=== PATIENT | female | born 1965 | race Caucasian/White ===

== ENCOUNTER 2017-10-14 07:17 | Inpatient (IN) | payer BC ==
[~2017-10-14] VITALS: Ht 162.6 cm; Wt 136.0 kg
[~2017-10-14 07:17] MED LIST: ALPR.25 PO; COEN400C PO; FAMO40TA PO; FOLI400T PO; HYDR-3580 PO; METF500T PO; ROSU1TAB8 PO
[2017-10-14] MEDS ORDERED: LACTATED RINGER'S 1000 ML IV PRN (08:00)
[2017-10-14] MEDS ORDERED: METOPROLOL TARTRATE 25 MG TAB PO PRN (08:00)
[2017-10-14] MEDS ORDERED: CHLORHEXIDINE GLUCONATE 2 % 1 PACK (2 CLOTHS) TOPICAL PRN (08:00)
[2017-10-14] MEDS ORDERED: SODIUM CHLORID 0.9% 500 ML IV PRN (08:00)
[2017-10-14] MEDS ORDERED: POVIDONE IODINE 5% (ANTISEPSIS KIT) 4 APPLICATIONS EACH NARE PRN (08:00)
[2017-10-14] MEDS ORDERED: CEFAZOLIN INJ 2,000 MG in SODIUM CHLORIDE 0.9% INJ 100 ML IV SCH (08:00)
[2017-10-14] MEDS ORDERED: CHLORHEXIDINE GLUCONATE 4% SOLN 120 ML BTL TOPICAL SCH (08:00)
[2017-10-14] MEDS ORDERED: VANCOMYCIN 1000 MG/NS 250 ML (for <70 kg) IV SCH ×2 (08:00)
[2017-10-14] MEDS ORDERED: FLUT50SP EACH NARE (08:46)
[2017-10-14] MEDS ORDERED: PROPOFOL 500 MG/50 ML INJ 100 ML ONE (09:14)
[2017-10-14] MEDS ORDERED: BUPIVACAINE/EPINEPHRINE 0.25% 50 ML VIAL ONE (09:19)
[2017-10-14] MEDS ORDERED: GENTAMICIN SULFATE 80 MG/2 ML VIAL ONE (09:20)
[2017-10-14] MEDS ORDERED: FAMOTIDINE 20 MG/2 ML VIAL ONE (09:57)
[2017-10-14] MEDS ORDERED: ceFAZolin INJ 1,000 MG VIAL ONE (10:11)
[2017-10-14] MEDS ORDERED: PROPOFOL 200 MG/20 ML AMP IV ONE (10:35)
[2017-10-14] MEDS ORDERED: ONDANSETRON HCL 4 MG/2 ML VIAL IV ONE (10:35)
[2017-10-14] MEDS ORDERED: ROCURONIUM INJ 50 MG/5 ML SYRINGE IV PUSH ONE (10:35)
[2017-10-14] MEDS ORDERED: LACTATED RINGER'S 1000 ML INJ 1,000 ML IV ONE (10:35)
[2017-10-14] MEDS ORDERED: ceFAZolin INJ 1,000 MG VIAL IV ONE ×2 (10:35→10:45)
--- NOTE | 2017-10-14 13:42 | PD.OP ---
cc: Macr Edwards MD; Hero Edwards MD Operative Report Date of Surgery: Oct 14, 2017 Preoperative Diagnosis: Osteophyte disc complex C3 5 6. Herniated nucleus pulposus C6 7, right, extruded. Right greater than left cervical radiculopathy Postoperative Diagnosis: Same Procedure: Anterocervical discectomy decompression with bilateral foraminotomy, C5 6. Anterocervical discectomy decompression and bilateral foraminotomies, C6 7. Left anterior iliac crest bone graft Anesthesia: Gen. Surgeon: Hero Edwards Masonry Supervisor(s): ALISE Castaneda Operation and Findings: EBL: 200 cc INDICATIONS: Patient is a 51-year-old female with severe right arm pain. Investigative studies shows evidence of an extruded disc herniation to the right at C67. There is evidence of an osteophyte disc complex with central stenosis and bilateral foraminal stenosis at C5 6. She presents for surgical treatment. NOTE: Vivi Castaneda PA-C was present for the entire surgical procedure as my expanded function dental assistant. In my medical opinion her skill and care was necessary for proper management of this patient PROCEDURE: The patient was brought to the operating room and anesthetized in the supine position. This patient was positioned supine on the radiolucent table. All pressure points were protected in the anterior cervical spine and iliac crest was scrubbed with alcohol followed by Hibiclens followed by ChloraPrep. A timeout was done and antibiotics were given within 1 hour time window. Lateral radiographic images were used identifying the proper level. A right anterior incision was made in line with skin creases. The platysma was opened in line with the incision. Deep dissection continued in the interval between the carotid sheath and the esophagus. The longus-coli muscles were lifted on both sides and retractors were positioned allowing good exposure. Lateral radiographic images were used to identify the proper level. [place] style interosseous pins were placed at C5 and C6 allowing exposure to that level. The microscope was rolled into the field. A total discectomy was accomplished and posterior osteophytes were removed. The posterior longitudinal ligament and annulus was taken down. Bilateral foraminotomies were accomplished. The endplates were squared up anticipating later bone grafting. A blunt probe could be placed out each foramen without evidence of nerve root compromise. The C5 pin was placed down to C7. An anterior exposure was accomplished. We performed a total discectomy with excision of the posterior annulus and posterior longitudinal ligament. Bilateral foraminotomies were accomplished. Osteophytes were removed. The endplates were squared up anticipating later bone grafting. A blunt probe could be placed out each foramen without evidence of nerve root compromise. The left iliac crest was approached. A small stab incision was made allowing percutaneous access to the anterior iliac crest. Multiple cores of cancellous bone were harvested and taken to the back table to be used for later bone grafting. The wound was irrigated anesthetized and closed with 4-0 Vicryl followed by Dermabond. The case was turned over to Dr. Marc Edwards for fusion and instrumentation per his dictation. FINDINGS: Was evidence of a large extruded disc herniation into the foramen to the right at C6 7. There was some bleeding that was encountered at the C6-C7 level. FloSeal was used for hemostasis. The case was turned over to Dr. Marc Edwards, the wound was completely dry. NOTE: This surgery was performed in 2 parts. The first part was the neurosurgical decompression performed under the variable power stereo microscope by the undersigned in addition to the bone graft. The second portion of the surgery will be performed by the orthopedic spine component by co -surgeon, Dr. Marc Edwards for the anterior fusion with interbody cage and anterior plate. The skill of 2 surgeons was necessary to perform distinct separate procedural services as dictated above and dictated in the following operative note by Dr. Marc Edwards. Hero Edwards MD Oct 14, 2017 13:42
[2017-10-14] MEDS ORDERED: DO NOT ADM ANY ANTICOAGULANT DRUGS PRN (14:39)
[2017-10-14] MEDS ORDERED: *MEPERIDINE 25 MG INJ VIAL PERIprocedural Use ONLY ONE (14:43)
[2017-10-14] MEDS ORDERED: Post-op Orders (for Pharmacy) XX ONE (14:45)
[2017-10-14] MEDS ORDERED: ALUMINUM/MAGNESIUM/SIMETH 30 ML CUP PO PRN (14:45)
[2017-10-14] MEDS ORDERED: PROMETHAZINE INJ 25 MG/ML VIAL IM PRN (14:45)
[2017-10-14] MEDS ORDERED: ALPRAZolam 0.25 MG TAB PO PRN (14:45)
[2017-10-14] MEDS ORDERED: ONDANSETRON HCL 4 MG/2 ML VIAL IV PUSH PRN (14:45)
[2017-10-14] MEDS ORDERED: ACETAMINOPHEN/HYDROcodone 325 MG/7.5 MG TAB PO PRN (14:45)
[2017-10-14] MEDS ORDERED: MIDAZOLAM HCL 2 MG/2 ML VIAL ONE (14:47)
[2017-10-14] MEDS ORDERED: *morphine SULFATE 8 MG/ML PERIprocedure ONLY ONE (14:56)
[2017-10-14] MEDS: LACTATED RINGER'S 1000 ML INJ 1,000 ML IV SCH (15:00)
--- NOTE | 2017-10-14 15:02 | RADRPT ---
EXAM DATE/TIME: 10/14/2017 14:02 [facility] COMPARISON: No previous studies available for comparison. INDICATIONS : C5-6, C6-7 Anrterior cervical disc fusion. MEDICAL HISTORY : Diabetes mellitus type II. Osteoarthritis. Gastroesophageal reflux disease. Smoker. SURGICAL HISTORY : Appendectomy. ENCOUNTER: Initial ACUITY: 1 day PAIN SCORE: Non-responsive. LOCATION: Cervical spine. FINDINGS: 4 images were recorded digitally in the operating room using C-arm during placement of a 3 level ante rior cervical plate. CONCLUSION: Intraoperative images. Néstor Riojas MD on October 14, 2017 at 14:59 Board Certified Radiologist. This report was verified electronically.
--- NOTE | 2017-10-14 16:10 | MP ---
cc: Marc Edwards MD DATE OF OPERATION: 10/14/2017 PREOPERATIVE DIAGNOSES: 1. C6-7 central right-sided foraminal herniated nucleus pulposus. 2. C5-C6 osteophyte disk complex, bilateral foraminal stenosis. 3. C4-C7 degenerative disk disease, osteoarthritis. 4. Right-sided cervical radiculitis with right upper extremity weakness. 5. Morbid obesity, body mass index 51.3. POSTOPERATIVE DIAGNOSES: 1. C6-7 central right-sided foraminal herniated nucleus pulposus. 2. C5-C6 osteophyte disk complex, bilateral foraminal stenosis. 3. C4-C7 degenerative disk disease, osteoarthritis. 4. Right-sided cervical radiculitis with right upper extremity weakness. 5. Morbid obesity, body mass index 51.3. PROCEDURE: C5-C6 and C6-C7 anterior interbody fusion; C5-C6, C6-C7 Spinet ACC anterior cervical cage; C5-C7 Spinet Rauscher anterior spinal instrumentation. SURGEON: Heather Edwards MD PRECINCT COMMANDING OFFICER: Vandana Fox PA-C. ESTIMATED BLOOD LOSS: 300 mL for the entire surgical case. COMPLICATIONS: None. DRAINS: None. PLAN OF ACTIVITY: As per orders. NOTE: Dr. Hero Edwards and myself were co-surgeons. Dr. Hero Edwards performed anterior cervical diskectomy, anterior decompression and foraminotomies, anterior decompression at C5-C6 and C6-C7. He also performed left anterior iliac crest bone grafting. I performed the orthopedic fusion and spinal instrumentation at C5-C6, C6-C7 and C5-C7. My news production assistant, Vandana Fox PA-C, was present for my portion of he case. She was medically necessary for the entire case because of the complexity of the case and to facilitate the performance of the procedure. The RESEARCH HOME ECONOMIST at the back table was not of the skill set in this case to manipulate the instruments, e.g. multiple different soft tissue retractors, trial implants and permanent implants. PROCEDURE DETAILS: The patient was brought into the operating room, had satisfactory anesthesia by the Department of Anesthesia. The patient had anterior spinal instrumentation by Dr. Hero Edwards, had anterior cervical exposure by Dr. Hero Edwards on the right side. He performed a C5-C6 and C6-C7 anterior cervical diskectomy, anterior decompression using the operating microscope and foraminotomies. He also performed a left anterior iliac crest bone graft. I was not in the room for his portion of the procedure. This is well described in his operative note. At C6-C7 we prepared for fusion. Hyaline cartilage endplates were removed using angled curettes and burs. A 7,10 x 12 ACC cage was placed in the interspace. Under fluoroscopic guidance anterior iliac crest bone grafting was used for fluoroscopic interbody effusion. The endplates at C5-C6 were prepared for fusion, hyaline cartilage endplate using angled curettes and burs. A 6 mm height 10 x 12 ACC cage was placed in the interspace. At this time, the neuromodular cardiopulmonary technician told me that the patient lost EMGs findings involving the right upper extremity. The cage was removed and within 5 minutes the patient had a complete resolution of the loss of EMG findings. Then the cage was reinserted. Anterior iliac crest bone graft was used under fluoroscopic guidance. The patient maintained the EMG findings throughout the remaining operative procedure. The somatic evoked potentials were never lost in either upper extremities or either lower extremities. The patient never lost any EMG activities involving the left upper extremity or bilateral lower extremities. The anterior osteophytes were removed using angled curettes, rongeurs and burs. A 43 mm length plate was used for anterior spinal instrumentation. The plate was contoured to the appropriate dimensions. Two packs were used to keep the plate in appropriate position, which was confirmed under fluoroscopic guidance in the AP and lateral plane. Then 2 screws were used in the vertebral body at C5, C6, and C7. Each of the screws were drilled, each of the screws were 14 mm in length, 4.0 mm in outer diameter, fixed angle screws. Each screw was appropriately locked to the plate. Intraoperative fluoroscopy in the AP and lateral plane confirmed satisfactory position of the bone graft at the C5-C6, C6-C7 and satisfactory position of the ACC cages at C5-C6, C6-C7, satisfactory position of anterior instrumentation at C5-C7. The wound was irrigated with copious amounts of sterile saline antibiotic solution. The wound itself were dry. The wound was closed in routine manner with multiple 3-0 Vicryl sutures. Skin was approximated with running subcuticular 4-0 Vicryls, Dermabond used on the incision. Sterile dressings were applied. The patient was placed in a [place] cervical orthosis. The patient tolerated the procedure well and arrived in the recovery room in stable and satisfactory condition. MD CARLOS Mathew/DANG , 02:27 PM , 04:09 PM
[2017-10-14 17:00] VITALS: BP 152/69; PULSE 89; RESP 20; TEMP 98.8; O2SAT 96
[2017-10-14] MEDS: ACETAMINOPHEN/HYDROcodone 325 MG/7.5 MG TAB PO PRN (18:22)
[2017-10-14 20:35] VITALS: BP 149/64; PULSE 94; RESP 17; TEMP 99.3; O2SAT 95
[2017-10-14] MEDS ORDERED: HYDROmorphone HCL PF 2 MG/ML VIAL IV PUSH PRN (20:38)
[2017-10-14] MEDS ORDERED: ATORVASTATIN 40 MG TAB PO SCH (21:00)
[2017-10-14] MEDS ORDERED: FLUTICASONE PROPIONATE 50 MCG/ACT 16 GM NASAL SPRAY EACH NARE SCH (21:00)
[2017-10-14] MEDS ORDERED: FAMOTIDINE 20 MG TAB PO SCH (21:00)
[2017-10-14] MEDS ORDERED: ZOLPIDEM TARTRATE 5 MG TAB PO PRN (21:00)
[2017-10-14] MEDS ORDERED: metFORMIN HCL 500 MG TAB PO SCH (21:00)
[2017-10-15] VITALS: BP 151/68; PULSE 98; RESP 18; TEMP 98.2; O2SAT 95
[2017-10-15] MEDS: ACETAMINOPHEN/HYDROcodone 325 MG/7.5 MG TAB PO PRN ×2 (00:16→08:11)
[2017-10-15] MEDS: LACTATED RINGER'S 1000 ML INJ 1,000 ML IV SCH (03:02)
[2017-10-15 04:00] VITALS: BP 132/70; PULSE 100; RESP 18; TEMP 97.6; O2SAT 94
--- NOTE | 2017-10-15 07:17 | PD.ORT.PN ---
Subjective Subjective Remarks complaining of post operative neck pain pre operative arm pain has resolved complains of sore throat Objective Vitals Vital Signs Date Time Temp Pulse Resp B/P (MAP) Pulse Ox O2 Delivery O2 Flow Rate FiO2 10/15/17 04:00 97.6 100 18 132/70 (90) 94 10/15/17 00:00 98.2 98 18 151/68 (95) 95 10/14/17 20:35 99.3 94 17 149/64 (92) 95 10/14/17 17:00 98.8 89 20 152/69 (96) 96 10/14/17 15:50 82 17 149/69 (95) 95 Nasal Cannula 2 10/14/17 15:30 98.5 86 18 143/63 (89) 97 Nasal Cannula 2 10/14/17 15:15 84 20 132/61 (84) 93 Nasal Cannula 2 10/14/17 15:00 86 22 141/65 (90) 97 Nasal Cannula 2 10/14/17 14:45 80 19 149/72 (97) 97 Nasal Cannula 4 10/14/17 14:38 98.4 88 20 144/74 (97) 96 Nasal Cannula 4 10/14/17 08:00 98.9 83 18 155/85 (108) 97 I/O 10/14/17 10/14/17 10/14/17 10/15/17 10/15/17 10/15/17 07:00 15:00 23:00 07:00 15:00 23:00 Intake Total 1800 ml 530 ml 580 ml Output Total 300 ml Balance 1500 ml 530 ml 580 ml Intake Oral 480 ml 480 ml IV Total 1800 ml 50 ml 100 ml Output Estimated Blood Loss 300 ml # Voids 1 2 # Bowel Movements 0 Objective Remarks seen and examined by Dr. Marc Edwards False Pass collar in place cervical dressing dry and intact motor is +5/5 to ue Assessment & Plan Assessment and Plan POD # 1 s/p C 5-7 ACDF False Pass collar x 4 weeks [place] 7.5 mg rx in chart counseled her on weight reduction discharge today, orthopedically stable Vandana Fox Oct 15, 2017 07:17
[2017-10-15] MEDS ORDERED: HYDR-3288 PO (07:18)
[2017-10-15 07:25] VITALS: BP 133/60; PULSE 106; RESP 18; TEMP 98.8; O2SAT 90
[2017-10-15] MEDS ORDERED: MULTIVITAMINS/MINERALS THERAPEUTIC TAB PO SCH (09:00)
== END 2017-10-15 10:36 | disposition home or self-care (01) | DRG 472 ==
LOC: HSDI 07:17 → N06B 16:08
PROVIDERS: ADMIT Orthopaedic Surgery Orthopaedic Surgery of the Spine; ATTEND Orthopaedic Surgery Orthopaedic Surgery of the Spine
PROC: 0RT30ZZ Resection of Cervical Vertebral Disc, Open Approach (ICD-10-PCS; 2017-10-14)
PROC: 0QB33ZZ Excision of Left Pelvic Bone, Percutaneous Approach (ICD-10-PCS; 2017-10-14)
PROC: 0RG20A0 Fusion of 2 or more Cervical Vertebral Joints with Interbody Fusion Device, Anterior Approach, Anterior Column, Open Approach (ICD-10-PCS; principal; 2017-10-14 10:17)
DX: M50.123 Cervical disc disorder at C6-C7 level with radiculopathy (principal); Z68.43 Body mass index [BMI] 50.0-59.9, adult; E66.01 Morbid (severe) obesity due to excess calories; M25.78 Osteophyte, vertebrae; M48.02 Spinal stenosis, cervical region; M47.22 Other spondylosis with radiculopathy, cervical region; Z87.891 Personal history of nicotine dependence
CPT/HCPCS: 72040; 76000; 94150; C1713; J0690; J1170; J1580; J2175; J2250; J2270; J2405; J3010; J3370; J7050; J7120; L0150